=== PATIENT | female | born 1940 | race Caucasian/White ===

== ENCOUNTER 2019-03-26 08:01 | Outpatient (CLI) | payer MEDICARE ==
[2019-03-26 10:39] LABS: CHOL/HDL RATIO 5.6 (<4.4); CHOLESTEROL 281 mg/dL; CRP HIGH SENSITIVITY 7.7 mg/L; HDL CHOLESTEROL 50 mg/dL; LDL CHOLESTEROL,CALCULATED 194 mg/dL; LDL/HDL RATIO 3.9 (<4.4); VLDL CHOLESTEROL 37 mg/dL
== END 2019-03-26 08:02 | disposition home or self-care (01) ==
LOC: LAB.S 08:01
PROVIDERS: ATTEND Family Medicine
DX: Z00.00 Encounter for general adult medical examination without abnormal findings (principal); E78.5 Hyperlipidemia, unspecified
CPT/HCPCS: 36415; 80061; 83721; 85651; 86141